=== PATIENT | male | born 1955 | race Caucasian/White ===

== ENCOUNTER → 2017-05-30 01:58 | Observation (INO) ==
[2017-05-30 00:48] VITALS: BP 165/101
--- NOTE | 2017-05-30 01:39 | Discharge Summary ---
Date of Encounter: 05/30/17 Time of Encounter: 01:37 - Discharge Diagnosis (1) Hydronephrosis with renal and ureteral calculous obstruction Priority: Primary Status: Acute - Discharge Medications Prescriptions: Ketorolac [Toradol] 10 mg PO Q6HR PRN #10 tablet PRN Reason: Pain Oxycodone HCl/Acetaminophen [Percocet 5-325 mg Tablet] 1 each PO Q4H PRN #20 tablet PRN Reason: Pain Home Medications: Ketorolac [Toradol] 10 mg PO Q6HR PRN #10 tablet 05/30/17 [Rx] Oxycodone HCl/Acetaminophen [Percocet 5-325 mg Tablet] 1 each PO Q4H PRN #20 tablet 05/30/17 [Rx] Date of admission: 05/30/17 00:31 Primary care physician: Herve Still Discharging clinician: Robe Toro Anticipated date of discharge: 05/30/17 - Patient Status Disposition: Home, Self-Care Condition: Good Functional capacity at discharge: independent ambulation Overall status at discharge: patient is progressing back to baseline - Discharge Instructions Follow Up With: Herve Still DO [Primary Care Provider] - Robe Toro MD [Partnered Physician] - (My office will contact the patient regarding scheduling for the ESWL) Additional Instructions: Take pain medication as directed if you experience discomfort Call if symptoms become severe or fever over 101 Urology office will contact the patient with scheduling for ESWL - Diet and Activity Activity: increase activity as tolerated Diet: advance to your usual diet - Hospital Course Hospital course: Mr. Landeros is a 61 year old male patient was transferred from [facility] [place] with an obstructing 8 mm left ureteral stone. He was described as having intractable pain was difficult to control. I accepted the transfer. On arrival to [place] the patient reports no pain. Reviewing his records his renal function was normal. He had no evidence of sepsis. Patient after conversation elected to be discharged without surgical intervention and the plan an outpatient ESWL - Time Spent with Patient Total time spent providing and/or coordinating discharge services: Exam Initial Vital Signs Temp Pulse Resp BP Pulse Ox 97.9 F 83 15 165/101 96 05/30/17 00:46 05/30/17 00:46 05/30/17 00:46 05/30/17 00:46 05/30/17 00:46 - General physical appearance Present: well developed, no distress
--- NOTE | 2017-05-30 08:12 | Urology History & Physical ---
Date of Encounter: 05/30/17 Time of Encounter: 08:10 Assessment and Plan (1) Hydronephrosis with renal and ureteral calculous obstruction Status: Acute I reviewed the outside CT report which demonstrated an 8 mm left ureteropelvic junction stone. I discussed that [facility] wished for him to be transferred because they claimed he had intractable pain. He denies any pain at this time. I offered surgical intervention with a ureteral stent. We ultimately decided to discharge the patient without intervention and proceed with a prompt outpatient extracorporeal shockwave lithotripsy which may prevent the patient from needing a ureteral stent. He understands the risk of having recurrent pain as an outpatient. He will probably call the office or go to the emergency room for any fever or severe symptoms. History of Present Illness Chief complaint: flank pain HPI: Mr. Landeros is a 61 year old male transferred from [facility] with reported intractable pain. on Arrival to hospital he had no pain and questioned the need for transfer. Patient has had a history of stones and required a ureteroscopic stone extraction in the past. Reviewing labs his creatinine was 1.1. No elevation of white cell count. No evidence of infection. He reports 0- [address] pain [address] time[address] scan at the outside facility shows an 8 mm left ureteropelvic junction stone Past Med Surg Social Fam HX - Past Medical History Medical history: diabetes, hypertension, kidney stones Psychiatric history: no psych history - Social History Smoking Status: Never smoker Smokeless Tobacco Status: No Alcohol use: none Drug use: none Medications and Allergies Ketorolac [Toradol] 10 mg PO Q6HR PRN #10 tablet 05/30/17 [Rx] Oxycodone HCl/Acetaminophen [Percocet 5-325 mg Tablet] 1 each PO Q4H PRN #20 tablet 05/30/17 [Rx] Review of Systems - Constitutional no chills, no fever(s) Exam Initial Vital Signs Temp Pulse Resp BP Pulse Ox 97.9 F 83 15 165/101 96 05/30/17 00:46 05/30/17 00:46 05/30/17 00:46 05/30/17 00:46 05/30/17 00:46 - General physical appearance Present: well developed, no distress - Eyes Present: PERRL - ENT Present: normal nares - Neck Present: no masses - Cardiovascular Cardiovascular exam IM: RRR - Abdomen Abdomen: Present: soft - Integumentary Present: no rash - Neurologic Absent: disoriented, confused Urology Results - Labs All other labs normal.
== END | disposition home or self-care (01) ==
LOC: 3ANU
PROVIDERS: ADMIT Urology; ATTEND Urology